=== PATIENT | female | born 1970 | race Caucasian/White ===

== ENCOUNTER 2016-12-28 20:44 | Emergency (ER) | payer SELFPAY ==
[~2016-12-28] VITALS: Ht 160 cm; Wt 61.2 kg
[2016-12-28 20:44] VITALS: BP_SYST 149
--- NOTE | 2016-12-28 20:44 | NUR ---
Patient to ER bed 5 to gown for evaluation. Side rails up. Report given to Pallavi NAGEL.
--- NOTE | 2016-12-28 21:05 | NUR ---
Pt brought in by boyfriend in stable condition. Per boyfriend, pt ate marachristy laced brownie about 2 hours ago w/ 2 glasses of wine. Per boyfriend, pt is having uncontrolled tremors and unable to speak x2 hours. Pt nodded her head when asked if she vomited. Placed pt on java lead, will continue to monitor
--- NOTE | 2016-12-28 21:25 | NUR ---
ER at bedside examining patient.
[2016-12-28 21:43] LABS: BASOPHILS % (AUTO) 0.5 % (0.0-2.0); EOSINOPHILS # (AUTO) 0.1 K/uL (0.0-0.4); HEMATOCRIT 34.4 % (36-48); HEMOGLOBIN 11.4 g/dL (12.0-16.0); LYMPHOCYTES # (AUTO) 2.8 K/uL (1.0-5.5); MEAN CORPUSCULAR HEMOGLOBIN 30 pg (27-31); MEAN CORPUSCULAR HGB CONC 33 % (32-36); MEAN CORPUSCULAR VOLUME 89 fL (79.0-98.0); MONOCYTES # (AUTO) 0.5 K/uL (0.0-1.0); MONOCYTES % (AUTO) 7.2 % (1.7-9.3); NEUTROPHILS # (AUTO) 2.9 K/uL (1.8-7.7); NEUTROPHILS % (AUTO) 47.3 % (40.0-70.0); PLATELET COUNT (AUTO) 263 K/uL (130-430); RED BLOOD CELL COUNT(AUTO) 3.86 MIL/uL (4.2-6.2); RED CELL DISTRIBUTION WIDTH 12.9 % (9.0-15.0); WHITE BLOOD COUNT (AUTO) 6.3 K/uL (4.8-10.8)
[2016-12-28 21:45] LABS: BILIRUBIN,URINE NEGATIVE (NEGATIVE); BLOOD, URINE NEGATIVE (NEGATIVE); CLARITY/URINE CLEAR (CLEAR); COLOR,URINE YELLOW (YELLOW); GLUCOSE,URINE NEGATIVE (NEGATIVE); HCG,QUAL RESULT NEGATIVE (NEGATIVE); KETONES,URINE NEGATIVE (NEGATIVE); LEUKOCYTE ESTERASE ,URINE NEGATIVE (NEGATIVE); NITRITE, URINE NEGATIVE (NEGATIVE); PROTEIN URINE NEGATIVE (NEGATIVE); UROBILINOGEN,URINE 0.2 (0.2-1.0)
[2016-12-28] MEDS ORDERED: NACL 0.9% 1,000 ML IV ONE (21:45)
[2016-12-28 21:50] LABS: ANION GAP 9 (5-15); CALCIUM 8.1 mg/dL (8.4-11.0); CHLORIDE 106 mmol/L (98-107); CREATININE 1.01 mg/dL (0.55-1.30); GLUCOSE 117 mg/dL (70-99); POTASSIUM 3.3 mmol/L (3.5-5.1); SODIUM SERUM 139 mmol/L (136-145); UREA NITROGEN, BLOOD 12 mg/dL (8-21)
[2016-12-28 21:51] LABS: GFR AFRICAN AMERICAN 76 mL/min (>90)
[2016-12-28 21:52] LABS: SALICYLATE < 1 mg/dL (3-30)
[2016-12-28 21:54] LABS: BARBITURATE, URINE NEGATIVE (NEG <=200); BENZODIAZEPINE, URINE NEGATIVE (NEG <=150); CANNABINOID, URINE POSITIVE (NEG <=50); COCAINE, URINE NEGATIVE (NEG <=150); METHAMPHETAMINES SCREEN,URINE NEGATIVE (NEG <=500); OPIATE, URINE NEGATIVE (NEG <=100); PHENCYCLIDINE SCREEN,URINE NEGATIVE (NEG <=25); UR TRICYCLIC ANTIDEPRESSANTS NEGATIVE (NEG <=300); URINE AMPHETAMINE NEGATIVE (NEG <=500); URINE METHADONE NEGATIVE (NEG <=200); URINE OXYCODONE SCREEN NEGATIVE (NEG <=100); URINE PROPOXYPHENE SCREEN NEGATIVE (NEG <=300)
[2016-12-28 21:54] LABS: ALANINE AMINOTRANSFERASE 19 U/L (12-78); ALBUMIN 3.8 g/dL (3.4-4.8); ALCOHOL, BLOOD 9 mg/dL (<10); ASPARTATE AMINOTRANSFERASE 18 U/L (10-37); TOTAL BILIRUBIN 0.3 mg/dL (0.0-1.0)
[2016-12-28 22:06] LABS: ACETAMINOPHEN < 1 ug/mL (1-30)
[2016-12-28] MEDS ORDERED: DIPHENHYDRAMINE INJ 50 MG/ML VIAL IVP ONE (22:15)
[2016-12-28] MEDS ORDERED: LORazepam 2 MG/ML VIAL (FOR ER USE) IVP ONE (22:15)
--- NOTE | 2016-12-28 22:15 | NUR ---
Pt is now more alert and admitted that she has insomnia. Pt stated that she was trying to fall asleep so she ate 2 marijuana laced brownies, alcohol and benadryl. Pt stated that she goes for 2-3 days without sleep. Pt remains on monitoring analyst and will continue to monitor
--- NOTE | 2016-12-28 22:38 | NUR ---
Scanner on computer was not scanning barcode of Ativan, manually enter barcode for Ativan
[2016-12-28 23:26] VITALS: BP_SYST 104
--- NOTE | 2016-12-28 23:26 | NUR ---
Patient given written and verbal discharge instructions and verbalizes understanding. ER MD FRY discussed with patient the results and treatment provided. Patient in stable condition. ID arm band removed. IV catheter removed intact and dressing applied, no active bleeding. NO Rx given. Patient educated on pain management and to follow up with PMD. Pain Scale 0/10. Opportunity for questions provided and answered.
== END 2016-12-28 23:26 | disposition home or self-care (01) ==
LOC: SED 20:44
DX: F12.10 Cannabis abuse, uncomplicated (principal)
CPT/HCPCS: 36415; 80053; 80307; 81003; 81025; 84703; 85025; 93005; 96361; 96374; 96375; 99285; G0480; G0481; G0482; J1200; J2060; J7030